=== PATIENT | female | born 1950 | race Caucasian/White ===

== ENCOUNTER → 2017-10-05 | Outpatient (CLI) | payer OTHER, MEDICARE ==
[~2017-10-05] MED LIST: ACYC200 PO; ALBU90OI INH; ALLEGRA ALLERG180 M1 PO; Anastrozole1 GM PO; Aspirin EC81 MG; CO Q10200 MG PO; Colace100 MG PO; Flonase 0.05% N16 GM; GLUCOSAMINE &1 EACH PO; LEVO-T75 MCG PO; VITAMIN D-32000 UNIT PO; ZINC15 PO
[2017-10-07 11:15] LABS: HCV Non Reactive (NR)
== END ==
LOC: LAB SHORT 17:38
PROVIDERS: Family Medicine
DX: Z20.9 Contact with and (suspected) exposure to unspecified communicable disease (principal)
CPT/HCPCS: 84460; 86706; 86803; 87340; 87389

== ENCOUNTER → 2017-11-29 | Outpatient (CLI) | payer OTHER, MEDICARE | LOC: LAB EV 18:03 | DX: Z20.9 Contact with and (suspected) exposure to unspecified communicable disease (principal) | CPT/HCPCS: 86803; 87389 ==

== ENCOUNTER → 2018-09-24 | Outpatient (CLI) | payer MEDICARE, OTHER | END | disposition home or self-care (01) | LOC: LAB SHORT 16:37 → LAB 16:37 | PROVIDERS: Nurse Practitioner Women's Health | DX: Z12.4 Encounter for screening for malignant neoplasm of cervix (principal); N95.2 Postmenopausal atrophic vaginitis; N95.1 Menopausal and female climacteric states; Z91.89 Other specified personal risk factors, not elsewhere classified | CPT/HCPCS: G0123 ==

== ENCOUNTER → 2019-06-11 | Outpatient (CLI) | payer MEDICARE, OTHER | END | disposition home or self-care (01) | LOC: PLD 10:05 → LAB SHORT 10:05 | DX: L57.0 Actinic keratosis (principal) | CPT/HCPCS: 88305 ==

== ENCOUNTER 2020-12-07 06:52 | Day surgery (SDC) | payer MEDICARE, OTHER ==
[~2020-12-07] VITALS: Ht 172.7 cm; Wt 55.5 kg
[2020-12-07] MEDS ORDERED: MAGNESIUM OXID500 MG PO (07:37)
--- NOTE | 2020-12-07 09:59 | NUR ---
12/07/20 0959 DESTINY POLO USED DURING EXAM.
== END 2020-12-07 09:44 | disposition home or self-care (01) ==
LOC: ORSCSDS 06:52
PROVIDERS: Internal Medicine Gastroenterology
PROC: 0DBL8ZX Excision of Transverse Colon, Via Natural or Artificial Opening Endoscopic, Diagnostic (ICD-10-PCS; principal; 2020-12-07 08:00)
PROC: 0DBK8ZX Excision of Ascending Colon, Via Natural or Artificial Opening Endoscopic, Diagnostic (ICD-10-PCS; principal; 2020-12-07 08:00)
DX: Z12.11 Encounter for screening for malignant neoplasm of colon (principal); Z86.010 Personal history of colon polyps; D12.3 Benign neoplasm of transverse colon; D12.2 Benign neoplasm of ascending colon; K57.30 Diverticulosis of large intestine without perforation or abscess without bleeding; K64.8 Other hemorrhoids; Z79.899 Other long term (current) drug therapy
CPT/HCPCS: 88305; J0461; J2405; J2704; J7120

== ENCOUNTER → 2021-11-18 | Outpatient (CLI) | payer MEDICARE, OTHER ==
[~2021-11-18] MED LIST changes: +MAGNESIUM OXID500 MG PO
[2021-11-19 11:04] LABS: Stool Occult Bld Immuno 1 Negative (NEGATIVE)
== END ==
LOC: LAB SHORT 09:00
PROVIDERS: Internal Medicine
DX: D50.9 Iron deficiency anemia, unspecified (principal)
CPT/HCPCS: 82274

== ENCOUNTER 2022-06-12 09:49 | Day surgery (SDC) | payer MEDICARE, OTHER ==
[~2022-06-12] VITALS: Ht 172.7 cm; Wt 56.7 kg
[~2022-06-12 09:49] MED LIST changes: -ALLEGRA ALLERG180 M1 PO; +ALLEGRA ALLERG180 MG PO; +ANAS1 PO; +BRILINTA90 M1 PO; +CELE200 PO; +CO Q10100 MG PO; -CO Q10200 MG PO; -GLUCOSAMINE &1 EACH PO; +GLUCOSAMINE-CH1 EAC7 PO; +MONT10T PO; +OMEP20ER PO; +ROSU10TA PO; +THERA-D2000 UNIT PO; -VITAMIN D-32000 UNIT PO
[2022-06-12] MEDS ORDERED: Isosorbide Mono30 MG PO (10:17)
[2022-06-12] MEDS ORDERED: Co Q-10300 MG PO (10:18)
[2022-06-12 10:46] LABS: BASOPHILS ABSOLUTE AUTO 0.08 K/mm3 (0.00-0.23); BASOPHILS PERCENT AUTO 1 % (0-2); EOSINOPHILS ABSOLUTE AUTO 0.06 K/mm3 (0.00-0.68); EOSINOPHILS PERCENT AUTO 1 % (0-6); Hematocrit 38.4 % (33.0-51.0); Hemoglobin 12.8 g/dL (11.5-16.0); IMMATURE GRAN ABSOLUTE AUTO 0.03 K/mm3 (0.00-0.10); IMMATURE GRAN PERCENT AUTO 1 % (0-1); LYMPHOCYTES ABSOLUTE AUTO 0.54 K/mm3 (0.84-5.20); LYMPHOCYTES PERCENT AUTO 9 % (21-46); MONOCYTES ABSOLUTE AUTO 0.54 K/mm3 (0.16-1.47); MONOCYTES PERCENT AUTO 9 % (4-13); Mean Corpuscular HGB 31.4 pg (26.0-34.0); Mean Corpuscular HGB Conc 33.3 g/dL (31.5-36.5); Mean Corpuscular Volume 94 fL (80-100); Mean Platelet Volume 12.9 fL (9.1-12.4); NEUTROPHILS ABSOLUTE AUTO 4.97 K/mm3 (1.96-9.15); NEUTROPHILS PERCENT AUTO 80 % (41-73); Platelet Count 173 K/mm3 (150-400); RDW Coefficient Variation 11.3 % (11.7-14.2); RDW Standard Deviation 38.5 fL (35.1-46.3); Red Blood Cell Count 4.08 M/mm3 (3.80-5.20); White Blood Cell Count 6.22 K/mm3 (4.00-11.30)
[2022-06-12 10:58] LABS: Prothrombin Time Results 10.5 Sec (9.7-11.5)
[2022-06-12 11:03] LABS: Bun/Creatinine Ratio 17.3 (12.0-20.0); Calcium, Blood 9.2 mg/dL (8.5-10.1); Creatinine, Blood 0.52 mg/dL (0.40-1.00); Potassium, Blood 3.4 mmol/L (3.5-5.5)
--- NOTE | 2022-06-12 14:22 | NUR ---
AIR REMOVED FROM TR BAND FRO TOTAL OF 5 CC, SITE STARTED BLEEDIMG. AIR REPLACED
--- NOTE | 2022-06-12 15:41 | NUR ---
PT UP AND DRESSED. TR BAND REMOVED WITHOUT BLEEDING. CLOTH DOT PLACED AFTER AREA CLEANSED. SALINE LOCK REMOVED WITH CATHETER INTACT. DISCHARGE REVIEWED WITH PT. VERBALIZES UNDERSTANDING OF INSTRUCTIONS. PT TO PRIVATE VEHICLE PER W/C WITH ONE STAFF.
== END 2022-06-12 15:45 | disposition home or self-care (01) ==
LOC: MHTC 09:49
PROVIDERS: Internal Medicine Cardiovascular Disease
DX: I25.110 Atherosclerotic heart disease of native coronary artery with unstable angina pectoris (principal); R07.9 Chest pain, unspecified; R06.00 Dyspnea, unspecified; E78.5 Hyperlipidemia, unspecified
CPT/HCPCS: 76937; 80048; 85025; 85347; 85610; 93454; 93571; A9270; C1769; C1887; C1894; J1644; J7030; J7050; Q9967

== ENCOUNTER → 2023-04-27 | Outpatient (CLI) | payer MEDICARE, OTHER ==
[~2023-04-27] MED LIST changes: +Co Q-10300 MG PO; +Isosorbide Mono30 MG PO
[2023-04-28 09:43] LABS: Campylobacter Sp Not Detected (NOT DETECT)
[2023-04-28 09:44] LABS: Adenovirus F 40/41 Not Detected (NOT DETECT); Astrovirus Not Detected (NOT DETECT); Cryptosporidium Not Detected (NOT DETECT); Cyclospora Cayetanensis Not Detected (NOT DETECT); E. Coli O157 Not Detected (NOT DETECT); Entamoeba Histolytica Not Detected (NOT DETECT); Enteroaggregative E. coli-EAEC Not Detected (NOT DETECT); Enteropathogenic E. coli-EPEC Detected (NOT DETECT); Enterotoxigenic E. coli-ETEC Not Detected (NOT DETECT); Giardia Lamblia Not Detected (NOT DETECT); Norovirus GI/GII Not Detected (NOT DETECT); Plesiomonas Shigelloides Not Detected (NOT DETECT); Rotavirus A Not Detected (NOT DETECT); Salmonella Sp Not Detected (NOT DETECT); Sapovirus Not Detected (NOT DETECT); Shiga Toxin-prod E. coli-STEC Not Detected (NOT DETECT); Shigella/Enteroin E. coli-EIEC Not Detected (NOT DETECT); Vibrio Cholerae Not Detected (NOT DETECT); Vibrio Sp Not Detected (NOT DETECT); Yersinia Enterocolitica Not Detected (NOT DETECT)
== END ==
LOC: LAB 15:19 → LAB SHORT 15:19
PROVIDERS: Internal Medicine
DX: R19.7 Diarrhea, unspecified (principal)
CPT/HCPCS: 87507